=== PATIENT | male | born 1985 | race Caucasian/White ===

== ENCOUNTER 2017-11-10 11:22 | Emergency (ER) | END 2017-11-10 13:02 | disposition home or self-care (01) ==

== ENCOUNTER 2018-05-31 12:16 | Emergency (ER) | END 2018-05-31 14:35 | disposition home or self-care (01) ==

== ENCOUNTER 2019-06-09 17:25 | Emergency (ER) | payer BC ==
[~2019-06-09] VITALS: Ht 177.8 cm; Wt 91.2 kg
[~2019-06-09 17:25] MED LIST: TRAM50TA2 PO
[2019-06-09 17:30] VITALS: Ht 177.8 cm; Wt 91.2 kg
--- NOTE | 2019-06-09 18:14 | ERD ---
ER Documentation Chief Complaint Chief Complaint left foot prblem, possible glass in the foot HPI 34-year-old male with no significant past medical history presents to the ED complaining of a possible retained foreign body to the dorsal aspect of his great left toe. Patient states his 3-year-old daughter accidentally dropped a glass cup to the floor which she stepped on while trying to clean it. He believes he got most of the pieces of glass out from his foot but continues to complain of pain to the plantar aspect of his left great toe. He states he initially cleaned his toe and has been soaking it in warm water with temporary relief. He denies any neurovascular complaints. No numbness. No pain with limping. Tetanus is up-to-date. ROS All systems reviewed and are negative except as per history of present illness. Medications Home Meds Active Scripts Tramadol HCl (Tramadol HCl) 50 Mg Tablet, 50 MG PO Q6 PRN for PAIN, #20 TAB Prov:VINCENT EVANS PA-C 05/31/18 Allergies Allergies: Coded Allergies: No Known Allergy (Unverified , 05/31/18) PMhx/Soc History of Surgery: No Anesthesia Reaction: No Hx Neurological Disorder: No Hx Respiratory Disorders: No Hx Cardiac Disorders: No Hx Psychiatric Problems: No Hx Miscellaneous Medical Probl: Yes (SPINE) Hx Alcohol Use: No Hx Substance Use: No Hx Tobacco Use: No Smoking Status: Never smoker Physical Exam Vitals Vital Signs Date Temp Pulse Resp B/P (MAP) Pulse Ox O2 O2 Flow FiO2 Time Delivery Rate 06/09/19 98.2 57 18 132/83 98 19:04 (99) 06/09/19 98.2 57 18 135/86 99 17:30 (102) Physical Exam Const: No acute distress Head: Atraumatic Eyes: Normal Conjunctiva ENT: Normal External Ears, Nose and Mouth. Skin: No petechiae or rashes Ext: + Pinpoint lesion to the plantar aspect of the L great toe, obvious foreign body. No palpable foreign body. Cap refill less than 2 seconds. DP/PT pulses 2+. Full flexion-extension of the toes and foot. Sensation grossly intact. Right lower extremity normal. Neur: Awake and alert Psych: Normal Mood and Affect Procedures/[facility]M LABS & DIAGNOSTIC IMAGING: PROCEDURE: XR LEFT GREAT TOE. CLINICAL INDICATION: Possible foreign body.. TECHNIQUE: Two views of the left great toe are available for review COMPARISON: No prior studies are available for comparison. FINDINGS: Bony alignment is within normal limits. No evidence for fracture, subluxation or dislocation. No evidence for erosive or destructive change. No radiopaque foreign body is seen. IMPRESSION: 1. No foreign body identified. 2. No underlying osseous abnormality is seen. MEDICAL DECISION MAKIN-year-old male presents with left great toe pain status post possible retained piece of glass. X-ray showed no evidence of foreign bodies or retained glass. He is neurovascularly intact on physical exam. There is no evidence of obvious foreign body, septic joint, neurovascular injury, tendon injury, osteomyelitis or deep space tissue infection at this time. I offered an Ortho shoe for comfort but patient deferred. He was provided referral to managed care liaison and discharged home with strict return precautions. PRESCRIPTIONS: None SPECIALIST FOLLOW UP RECOMMENDED: podiatry Patient has been advised to follow up with primary care in 1-2 days. Departure Diagnosis: Primary Impression: Toe pain, left Condition: Stable NEAL CRONIN PA-C Jun 09, 2019 18:14
[2019-06-09 19:04] VITALS: BP 132/83; PULSE 57; RESP 18
== END 2019-06-09 19:05 | disposition home or self-care (01) ==
LOC: FTE 17:25
DX: M79.675 Pain in left toe(s) (principal)
CPT/HCPCS: 73620